=== PATIENT | female | born 1935 | race Caucasian/White ===

== ENCOUNTER 2024-04-01 14:53 | Outpatient (CLI) | payer MEDICARE | END 2024-04-01 14:54 | disposition home or self-care (01) | LOC: SCSRAD 14:53 | PROVIDERS: ATTEND Nurse Practitioner Family | DX: R55 Syncope and collapse (principal) | CPT/HCPCS: 72100 ==

== ENCOUNTER 2024-04-02 00:13 | Inpatient (IN) | payer MEDICARE ==
[2024-04-02 01:44] VITALS: BMI 27.3
[2024-04-02] MEDS ORDERED: Acetaminophen 650 MG Suppository PR PRN (01:52)
[2024-04-02 04:45] LABS: #Basophils Less than 0.03 10x3/uL (0.0-0.2); %Basophils 0.2 % (0.0-1.0); %Eosinophils 1.4 % (0.0-10.0); %Monocytes 7.3 % (0.0-10.0); %Neutrophils 73.7 % (42.0-75.0); Anion Gap 13 mmol/L (10-20); BUN (Urea Nitrogen) 13 mg/dL (9.8-20.1); Calc. Creatinine Clearance 56 mL/min (70-130); Calcium 8.7 mg/dL (7.8-10.44); Carbon Dioxide 22 mmol/L (23-31); Chloride 108 mmol/L (98-107); Estimated GFR 75; Glucose 98 mg/dL (83-110); Hematocrit 42.1 % (36.0-47.0); Hemoglobin 14.1 g/dL (12.0-16.0); Mean Corpuscular HGB CONC 33.5 g/dL (32.0-36.0); Mean Corpuscular Hemoglobin 32.5 pg (27.0-31.0); Mean Platelet Volume 10.9 fL (7.4-10.4); Platelet Count 181 10x3/uL (130-400); Potassium 4.2 mmol/L (3.5-5.1); RBC Distribution Width 13.2 % (11.5-14.5); Red Blood Cell (RBC) Count 4.34 mill/uL (4.20-5.40); Sodium 139 mmol/L (136-145)
[2024-04-02 05:11] LABS: Troponin I Less than 0.010 ng/mL (< 0.028)
[2024-04-02 07:00] LABS: Troponin I 0.014 ng/mL (< 0.028)
[2024-04-02] MEDS: Famotidine 20 MG TAB PO SCH (08:51)
[2024-04-02] MEDS: traMADol HCl 50 MG TAB PO PRN (08:51)
[2024-04-02] MEDS: Famotidine/PF 20 mg/2ml Vial SLOW IVP SCH (09:17)
[2024-04-02] MEDS: Acetaminophen 325 MG TAB PO PRN (10:56)
[2024-04-02] MEDS ORDERED: Loratadine 10 MG TAB PO PRN (11:09)
[2024-04-02] MEDS: Atorvastatin Calcium 40 MG TAB PO SCH (20:39)
[2024-04-03] MEDS: Aspirin 81 mg Enteric Coated Tablet PO SCH (07:23)
[2024-04-03] MEDS: Famotidine 20 MG TAB PO SCH (07:23)
[2024-04-03] MEDS: Famotidine/PF 20 mg/2ml Vial SLOW IVP SCH (07:28)
[2024-04-03] MEDS: Ondansetron PF 4 MG/2 ML Vial IVP PRN (11:48)
[2024-04-03] MEDS: Polyethylene Glycol 3350 17 GM Packet PO PRN (18:20)
[2024-04-03] MEDS: Senokot S 8.6-50 MG TAB PO SCH (21:23)
[2024-04-03] MEDS: Ondansetron ODT 4 MG TAB PO PRN (21:24)
[2024-04-03] MEDS: Calcium Carbonate 500 MG ChewTAB PO PRN (22:18)
[2024-04-03] MEDS ORDERED: Simethicone Chewable 80 MG TAB PO PRN (23:11)
[2024-04-03] MEDS ORDERED: Bisacodyl 5 MG TAB PO PRN (23:12)
[2024-04-06] MEDS: Enoxaparin 40 MG (0.4 mL) SYRINGE SC SCH (08:47)
[2024-04-07] MEDS ORDERED: Senokot S 8.6-50 MG TAB PO PRN (18:17)
[2024-04-08 14:12] VITALS: BMI 27.3
[2024-04-10] MEDS: Senokot S 8.6-50 MG TAB PO PRN (08:56)
[2024-04-10] MEDS: Guaifenesin DM 100-10/5 ML UDCUP PO PRN (21:07)
[2024-04-12] MEDS: Melatonin 3 MG TAB PO PRN (00:26)
[2024-04-12 11:39] VITALS: BP 113/63; TEMP 97.6
== END 2024-04-12 18:55 | DRG 552 ==
LOC: 2SE 01:11 → OBSVTOIN 04-03 16:53 → 2NO 04-05 22:16 → T4-A 04-08 20:44
PROVIDERS: ADMIT Student in an Organized Health Care Education/Training Program; ATTEND Internal Medicine
DX: S22.081A Stable burst fracture of T11-T12 vertebra, initial encounter for closed fracture (principal); W19.XXXA Unspecified fall, initial encounter; I65.21 Occlusion and stenosis of right carotid artery; E78.5 Hyperlipidemia, unspecified; Z90.710 Acquired absence of both cervix and uterus; Z90.49 Acquired absence of other specified parts of digestive tract
CPT/HCPCS: 36415; 36416; 70498; 70551; 71045; 72100; 72131; 80048; 80053; 83605; 83690; 84484; 85025; 93005; 93306; 93880; 94760; 96374; 96375; 96376; G0378; J1650; J2270; J2405; Q0162